=== PATIENT | female | born 1985 | race Caucasian/White ===

== ENCOUNTER 2017-02-10 13:45 | Outpatient (CLI) ==
[2016-08-01 10:31] VITALS: BMI 20.7
--- NOTE | 2017-02-10 14:26 | DI ---
EXAM: Three views left foot HISTORY: Left foot pain COMPARISON: 05/16/2015 FINDINGS: No fracture or dislocation is identified. The joint spaces are maintained. No erosive changes are identified. No gross soft tissue abnormality is seen. IMPRESSION: No acute osseous abnormality.
== END 2017-02-10 13:46 | disposition home or self-care (01) ==
LOC: RAD 13:45
PROVIDERS: ATTEND Emergency Medicine
DX: M79.672 Pain in left foot (principal)

== ENCOUNTER 2017-02-12 11:39 | Emergency (ER) ==
[2017-02-12 11:45] VITALS: BP 122/70; TEMP 98.7; BMI 21.9
[2017-02-12 12:13] LABS: BASOPHILS # (AUTO) 0.1 K/uL (0-0.2); BASOPHILS % (AUTO) 0.7 % (0.0-3.0); EOSINOPHILS # (AUTO) 0.2 K/ul (0.0-0.7); EOSINOPHILS % (AUTO) 1.2 % (0.0-7.0); HEMATOCRIT 40.9 % (37.0-47.0); HEMOGLOBIN 13.9 g/dl (12.0-16.0); IMMATURE GRANULOCYTE % (AUTO) 0.4 % (0.0-5.0); LYMPHOCYTES # (AUTO) 3.9 K/uL (0.60-3.4); LYMPHOCYTES % (AUTO) 25.5 (10.0-50.0); MEAN CORPUSCULAR HEMOGLOBIN 29.5 pg (27.0-31.0); MEAN CORPUSCULAR VOLUME 86.8 fl (81.0-99.0); MONOCYTES # (AUTO) 1.1 K/uL (0.4-2.0); MONOCYTES % (AUTO) 7.3 (0-10); NEUTROPHILS # (AUTO) 9.9 K/ul (2.0-6.9); NEUTROPHILS % (AUTO) 64.9; PLATELET COUNT 348 10^3/uL (140-440); RED BLOOD COUNT 4.71 10^6/ul (4.20-5.40); WHITE BLOOD COUNT 15.26 K/ul (4.6-10.2)
[2017-02-12 12:18] LABS: URINE PREGNANCY INTERNAL QC INTERNAL QC VALID
[2017-02-12 12:25] LABS: ALBUMIN 4.2 g/dL (3.4-5.0); ALBUMIN/GLOBULIN RATIO 1.56; ANION GAP 12.5; BILIRUBIN,TOTAL 1.03 mg/dL (0.00-1.20); BUN/CREATININE RATIO 8.82; CALCIUM 9.1 mg/dL (8.2-10.2); CREATININE 0.68 mg/dL (0.60-1.30); POTASSIUM 3.5 mmol/L (3.5-5.10); TOTAL PROTEIN 6.9 g/dL (6.4-8.2)
--- NOTE | 2017-02-12 12:48 | CT ---
EXAM: CT scan of the left foot without contrast HISTORY: Injury pain swelling TECHNIQUE: Imaging of the left foot was performed without contrast. Axial images and coronal and s agittal reconstructions were provided for interpretation. FINDINGS: No acute fractures are seen. There is anatomic alignment. No acute abnormalities are se en within the tarsal bones. There is mild dorsal soft tissue swelling. IMPRESSION: No acute fracture dislocation seen within the left foot.
--- NOTE | 2017-02-12 12:50 | CT ---
EXAM: CT scan of the left ankle without contrast HISTORY: Fall injury TECHNIQUE: Imaging of the left ankle was performed without contrast. Sagittal and coronal reconstr uctions and axial images were provided for interpretation. FINDINGS: The distal fibula and tibia appear intact. No acute fractures are seen within the talus and calcaneus. No acute abnormalities are seen within the tarsal bones. There is mild anterior and l ateral soft tissue swelling at the level of the ankle. There is mild dorsal and lateral soft tissue swelling at the level of the foot. IMPRESSION: No evidence of acute fracture seen within the left ankle.
--- NOTE | 2017-02-12 12:52 | ED.PDOC ---
General ED Provider: Dr. ZEINAB HAMLIN-ER Chief Complaint: Foot Pain/Injury Stated Complaint: i hurt my foot and my ankle--i reinjured my ankle and i called dr gillette and he told me to come here Time Seen by Physician: 11:45 Mode of Arrival: Walk-In Information Source: Patient Exam Limitations: No limitations Primary Care Provider: MANAS JAY Nursing and Triage Documentation Reviewed and Agree: Yes Musculoskeletal Complaint Exam - Ankle/Foot Complaint/Exam Location of Injury: Reports: Left, Ankle, Foot Mechanism of Injury: Reports: Trauma Symptoms Are: Reports: Still present Initial Severity: Mild Current Severity: Mild Location: Reports: Discrete Character: Reports: Aching Alleviating: Reports: None Aggravating: Reports: Movement, Weight bearing, Prolonged standing Able to Bear Weight: No Associated Signs and Symptoms: Reports: Swelling, Bruising Gout Risk Factors: Reports: None Related Surgical History: Reports: None Lower Extremity Findings: Present: Swelling, Ecchymosis, Tenderness, Limited range of motion Achilles Tendon Abnormality: No Tenderness: Present: Lateral malleolus, Midfoot Limited Range of Motion: Present: Inversion, Eversion Differential Diagnosis: Contusion, Closed Fracture, Sprain, Strain Review of Systems - Review Of Systems Constitutional: Reports: No symptoms Eyes: Reports: No symptoms Ears, Nose, Mouth, Throat: Reports: No symptoms Respiratory: Reports: No symptoms Cardiac: Reports: No symptoms GI: Reports: No symptoms : Reports: No symptoms Musculoskeletal: Reports: Joint pain, Joint swelling, Muscle pain Skin: Reports: No symptoms Neurological: Reports: No symptoms Endocrine: Reports: No symptoms Hematologic/Lymphatic: Reports: No symptoms All Other Systems: Reviewed and Negative Past Medical History - Past Medical History Previously Healthy: Yes Endocrine: Reports: None Cardiovascular: Reports: None Respiratory: Reports: Other (SINUSITIS) Hematological: Reports: None Gastrointestinal: Reports: PUD, GI Bleed, Other (CHRONIC DIARRHEA FOR 6 YEARS[ End ] IBS) Genitourinary: Reports: None Neuro/Psych: Reports: Seizure, Anxiety Musculoskeletal: Reports: None Cancer: Reports: None Last Menstrual Period: "states not " Other Pertinent Past Medical History: bee sting cellulitis - Surgical History General Surgical History: Reports: None - Family History Family History: Reports: None - Social History Smoking Status: Current every day smoker, Light tobacco smoker Hx Substance Use: No Alcohol Screening: Occasionally Lives: With family Physical Exam - Physical Exam Appearance: Well-appearing, No pain distress, Well-nourished Eyes: ANGEL, EOMI, Conjunctiva clear ENT: Ears normal, Nose normal, Oropharynx normal Neck: Supple Respiratory: Airway patent, Breath sounds clear, Breath sounds equal, Respirations nonlabored Cardiovascular: RRR, Pulses normal, No rub, No murmur GI/: Soft, Nontender, No masses, Bowel sounds normal, No Organomegaly Musculoskeletal: Limited ROM (bruising over the left ankle and foot), Edema ( foot) Skin: Warm, Dry, Normal color Neurological: Sensation intact, Motor intact, Reflexes intact, Cranial nerves intact, Alert, Oriented Psychiatric: Affect appropriate, Mood appropriate Interpretation - Radiology Interpretation Radiology Interpretation By: Radiologist Radiology Results: Negative Exam Interpreted: CT Scan Critical Care Note - Critical Care Note Total Time (mins): 0 Course - Course Hematology/Chemistry: 02/12/17 11:55 02/12/17 11:55 Orders, Labs, Meds: Lab Review 02/12/17 02/12/17 11:50 11:55 WBC 15.26 H RBC 4.71 Hgb 13.9 Hct 40.9 MCV 86.8 MCH 29.5 MCHC 34.0 RDW Coeff of Johnson 14.3 Plt Count 348 Immature Gran % (Auto) 0.4 Neut % (Auto) 64.9 Lymph % (Auto) 25.5 [place] % (Auto) 7.3 Eos % (Auto) 1.2 Baso % (Auto) 0.7 Immature Gran # (Auto) 0.1 Neut # 9.9 H Lymph # 3.9 H [place] # 1.1 Eos # 0.2 Baso # 0.1 PT 11.0 INR 1.07 Sodium 139 Potassium 3.5 Chloride 106 Carbon Dioxide 24 Anion Gap 12.5 BUN 6 L Creatinine 0.68 Estimated GFR (MDRD) 101.00 BUN/Creatinine Ratio 8.82 Glucose 104 Calcium 9.1 Total Bilirubin 1.03 AST 12 L ALT 11 L Alkaline Phosphatase 45 Total Protein 6.9 Albumin 4.2 Globulin 2.7 Albumin/Globulin Ratio 1.56 Urine Test Negative Orders Category Date Time Status CRUTCHES [ED CRUTCHES] .ONCE EMERGENCY 02/12/17 12:54 Active ED [place] .ONCE EMERGENCY 02/12/17 12:54 Active ED SPLINT APPLICATION .ONCE EMERGENCY 02/12/17 12:54 Active CBC W/ AUTO DIFF Stat LAB 02/12/17 11:55 Completed COMPREHENSIVE METABOLIC PANEL Stat LAB 02/12/17 11:55 Completed TEST URINE [URINE ] Stat LAB 02/12/17 11:50 Completed PT WITH INR Stat LAB 02/12/17 11:[address] ANKLE LEFT WITHOUT CONTRAST Stat RADS 02/12/17 11:[address] FOOT LEFT WITHOUT CONTRAST Stat RADS 02/12/17 11:53 Completed Vital Signs: Temp Pulse Resp BP Pulse Ox 02/12/17 11:40 98.7 F 103 H 16 122/70 98 Departure - Departure Time of Disposition: 12:52 Disposition: HOME SELF-CARE Discharge Problem: Ankle sprain Qualifiers: Encounter type: subsequent encounter Involved ligament of ankle: unspecified ligament Laterality: left Qualifier Code: (S93.402D) Sprain of unspecified ligament of left ankle, subsequent encounter Leukocytosis Qualifiers: Leukocytosis type: unspecified Qualifier Code: (D72.829) Elevated white blood cell count, unspecified Instructions: Ankle Sprain (ED), Ankle Stirrup Splint (ED) Condition: Good Pt referred to PMD for follow-up: Yes Additional Instructions: stay in splint and crutches=---f/u with dr gillette concerning white blood cell count-- neurontin 100mg tid prn #21 for pain Allergies/Adverse Reactions: Allergies No Known Allergies Allergy (Verified 02/12/17 11:44) Home Medications: Ambulatory Orders Prednisone 5 mg PO DAILYWM 02/12/17 Disposition Discussed With: Patient
== END 2017-02-12 13:07 | disposition home or self-care (01) ==
LOC: ED 11:39
DX: S93.402D Sprain of unspecified ligament of left ankle, subsequent encounter (principal); D72.829 Elevated white blood cell count, unspecified; F17.210 Nicotine dependence, cigarettes, uncomplicated
CPT/HCPCS: 36415; 80053; 81025; 85025; 85610; 99283

== ENCOUNTER 2017-02-12 19:34 | Emergency (ER) ==
[2017-02-12 19:35] VITALS: BMI 21.9
[2017-02-12 19:46] VITALS: BP 113/53; TEMP 98.6
[2017-02-12] MEDS ORDERED: TORADOL IM STA (20:00)
--- NOTE | 2017-02-12 20:03 | ED.PDOC ---
General ED Provider: Dr. ORTIZ DURAN Chief Complaint: Foot Pain/Injury Stated Complaint: Patient was here in the morning for the same reason, was given neurontin and tramadol, but patient could not tolerate them. ct ankle showed some swelling no fracture. Time Seen by Physician: 20:00 Mode of Arrival: Walk-In Information Source: Patient Primary Care Provider: MANAS JAY Nursing and Triage Documentation Reviewed and Agree: Yes Musculoskeletal Complaint Exam - Ankle/Foot Complaint/Exam Location of Injury: Reports: Left, Ankle, Foot Mechanism of Injury: Reports: Trauma Symptoms Are: Reports: Still present Onset of Pain: Reports: Immediate Initial Severity: Moderate Current Severity: Severe Location: Reports: Discrete Character: Reports: Aching, Throbbing Alleviating: Reports: None Aggravating: Reports: Movement, Weight bearing Able to Bear Weight: No Associated Signs and Symptoms: Reports: Swelling, Redness, Bruising. Denies: Fever, Weakness, Numbness, Tingling Gout Risk Factors: Reports: None Related Surgical History: Reports: None Lower Extremity Findings: Present: Swelling, Ecchymosis Tenderness: Present: Medial malleolus, Lateral malleolus, Midfoot Limited Range of Motion: Present: Inversion, Eversion Differential Diagnosis: Sprain, Strain Review of Systems - Review Of Systems Constitutional: Reports: No symptoms Eyes: Reports: No symptoms Ears, Nose, Mouth, Throat: Reports: No symptoms Respiratory: Reports: No symptoms Cardiac: Reports: No symptoms GI: Reports: No symptoms : Reports: No symptoms Musculoskeletal: Reports: Joint pain, Joint swelling Skin: Reports: No symptoms Neurological: Reports: No symptoms Endocrine: Reports: No symptoms Hematologic/Lymphatic: Reports: No symptoms All Other Systems: Reviewed and Negative Past Medical History - Past Medical History Previously Healthy: Yes Endocrine: Reports: None Cardiovascular: Reports: None Respiratory: Reports: Other (SINUSITIS) Hematological: Reports: None Gastrointestinal: Reports: PUD, GI Bleed, Other (CHRONIC DIARRHEA FOR 6 YEARS[ End ] IBS) Genitourinary: Reports: None Neuro/Psych: Reports: Seizure, Anxiety Musculoskeletal: Reports: None Cancer: Reports: None Last Menstrual Period: unsure - had preg. test here earlier Other Pertinent Past Medical History: bee sting cellulitis - Surgical History General Surgical History: Reports: None - Family History Family History: Reports: None - Social History Smoking Status: Current every day smoker, Light tobacco smoker Smoking Cessation Counseling Time: > 10 min Hx Substance Use: No Alcohol Screening: Occasionally - Immunizations Tetanus Shot up to Date: Yes Physical Exam - Physical Exam Appearance: Well-appearing, No pain distress, Well-nourished Pain Distress: Moderate Eyes: ANGEL, EOMI, Conjunctiva clear ENT: Ears normal, Nose normal, Oropharynx normal Respiratory: Airway patent, Breath sounds clear, Breath sounds equal, Respirations nonlabored Cardiovascular: RRR, Pulses normal, No rub, No murmur GI/: Soft, Nontender, No masses, Bowel sounds normal, No Organomegaly Musculoskeletal: No edema, No calf tenderness, Limited ROM, Limited strength Skin: Warm, Dry, Normal color Neurological: Sensation intact, Motor intact, Reflexes intact, Cranial nerves intact, Alert, Oriented Psychiatric: Affect appropriate, Mood appropriate Critical Care Note - Critical Care Note Total Time (mins): 0 Course - Course Orders, Labs, Meds: Orders Category Date Time Status Ketorolac Tromethamine [Toradol] MEDS 02/12/17 20:00 Stat 60 mg IM ONCE STA Vital Signs: Temp Pulse Resp BP Pulse Ox 02/12/17 19:35 98.6 F 86 20 113/53 L 98 Departure - Departure Time of Disposition: 20:06 Disposition: HOME SELF-CARE Discharge Problem: Ankle sprain Qualifiers: Encounter type: subsequent encounter Involved ligament of ankle: unspecified ligament Laterality: left Qualifier Code: (S93.402D) Sprain of unspecified ligament of left ankle, subsequent encounter Instructions: Ankle Stirrup Splint (ED), Ankle Sprain (ED) Condition: Stable Pt referred to PMD for follow-up: Yes Additional Instructions: rest cold or hot pack. patient told me that she did not fill her tramadol today. as she gets sick from them. Prescriptions: Hydrocodone Bit/Acetaminophen [[place] 7.5-325] 1 each PO Q8H #10 tablet Allergies/Adverse Reactions: Allergies tramadol Adverse Reaction (Verified 02/12/17 19:48) Vomiting Home Medications: Ambulatory Orders Gabapentin [Neurontin] 100 mg PO TID PRN 02/12/17 Hydrocodone Bit/Acetaminophen [[place] 7.5-325] 1 each PO Q8H #10 tablet 02/12/17 Prednisone 5 mg PO DAILYWM 02/12/17 Disposition Discussed With: Patient
== END 2017-02-12 20:25 | disposition home or self-care (01) ==
LOC: ED 19:34
DX: S93.402D Sprain of unspecified ligament of left ankle, subsequent encounter (principal); F17.210 Nicotine dependence, cigarettes, uncomplicated; D72.829 Elevated white blood cell count, unspecified
CPT/HCPCS: 36415; 80053; 81025; 85025; 85610; 96372; 99282; 99283

== ENCOUNTER 2017-07-01 09:51 | Emergency (ER) ==
[2017-07-01 09:51] VITALS: BMI 21.9
[2017-07-01 09:55] VITALS: BP 116/79; TEMP 97.6
--- NOTE | 2017-07-01 10:02 | ED.PDOC ---
General ED Provider: Dr. MELANY ENCINAS Chief Complaint: Nausea/Vomiting Stated Complaint: Patient is a 32 year old female who has a history of IBS woke up yesterday with headache and diffuse vague abdominal pain with vomiting and Diarrhea. States she feels better but was encouraged by family to come to the ER Time Seen by Physician: 10:02 Mode of Arrival: Walk-In Information Source: Patient Exam Limitations: No limitations Primary Care Provider[facility] Nursing and Triage Documentation Reviewed and Agree: Yes Review of Systems - Review Of Systems Constitutional: Reports: No symptoms Eyes: Reports: No symptoms Ears, Nose, Mouth, Throat: Reports: No symptoms Respiratory: Reports: No symptoms Cardiac: Reports: No symptoms GI: Reports: Abdominal pain, Diarrhea, Nausea, Vomiting : Reports: No symptoms Musculoskeletal: Reports: No symptoms Skin: Reports: No symptoms Neurological: Reports: No symptoms Endocrine: Reports: No symptoms Hematologic/Lymphatic: Reports: No symptoms All Other Systems: Reviewed and Negative Past Medical History - Past Medical History Previously Healthy: Yes Endocrine: Reports: None Cardiovascular: Reports: None Respiratory: Reports: Other (SINUSITIS) Hematological: Reports: None Gastrointestinal: Reports: PUD, GI Bleed, Other (CHRONIC DIARRHEA FOR 6 YEARS[ End ] IBS) Genitourinary: Reports: None Neuro/Psych: Reports: Seizure, Anxiety Musculoskeletal: Reports: None Cancer: Reports: None Last Menstrual Period: NOW Other Pertinent Past Medical History: bee sting cellulitis - Surgical History General Surgical History: Reports: None - Family History Family History: Reports: None - Social History Smoking Status: Current every day smoker, Light tobacco smoker Hx Substance Use: No Alcohol Screening: Occasionally Physical Exam - Physical Exam Appearance: Ill-appearing Re-Evaluation - Re-Evaluation Time of Re-Evaluation: 11:40 Status: Improved Vital Signs Stable: Yes Critical Care Note - Critical Care Note Total Time (mins): 0 Course - Course Hematology/Chemistry: 07/01/17 10:17 07/01/17 10:17 Orders, Labs, Meds: Lab Review 07/01/17 07/01/17 07/01/17 10: 10:17 10:17 WBC 13.87 H RBC 4.98 Hgb 15.0 Hct 44.3 MCV 89.0 MCH 30.1 MCHC 33.9 RDW Coeff of [place] 12.3 Plt Count 328 Immature Gran % (Auto) 0.3 Neut % (Auto) 73.6 Lymph % (Auto) 16.7 [place] % (Auto) 6.0 Eos % (Auto) 2.8 Baso % (Auto) 0.6 Immature Gran # (Auto) 0.0 Neut # 10.2 H Lymph # 2.3 [place] # 0.8 Eos # 0.4 Baso # 0.1 Sodium 138 Potassium 3.9 Chloride 104 Carbon Dioxide 26 Anion Gap 11.9 BUN 9 Creatinine 0.70 Estimated GFR (MDRD) 98.00 BUN/Creatinine Ratio 12.85 Glucose 98 Calcium 9.6 Total Bilirubin 0.70 AST 15 ALT 14 Alkaline Phosphatase 49 Total Protein 7.2 Albumin 4.2 Globulin 3.0 Albumin/Globulin Ratio 1.40 Serum , Qual Negative Urine Color Urine Clarity Urine pH Ur Specific [place] Urine Protein Urine Glucose (UA) Urine Ketones Urine Blood Urine Nitrite Urine Bilirubin Urine Urobilinogen Ur Leukocyte Esterase Urine Microscopic RBC Urine Microscopic WBC Ur Squamous Epith Cells Urine Bacteria Hyaline Casts Urine Mucus 07/01/17 11:15 WBC RBC Hgb Hct MCV MCH MCHC RDW Coeff of Johnson Plt Count Immature Gran % (Auto) Neut % (Auto) Lymph % (Auto) [place] % (Auto) Eos % (Auto) Baso % (Auto) Immature Gran # (Auto) Neut # Lymph # [place] # Eos # Baso # Sodium Potassium Chloride Carbon Dioxide Anion Gap BUN Creatinine Estimated GFR (MDRD) BUN/Creatinine Ratio Glucose Calcium Total Bilirubin AST ALT Alkaline Phosphatase Total Protein Albumin Globulin Albumin/Globulin Ratio Serum , Qual Urine Color Yellow Urine Clarity Clear Urine pH 6.5 Ur Specific [place] 1.010 Urine Protein Negative Urine Glucose (UA) Negative Urine Ketones Negative Urine Blood Trace-lysed Urine Nitrite Negative Urine Bilirubin Negative Urine Urobilinogen 0.2 Ur Leukocyte Esterase Negative Urine Microscopic RBC 2-5 Urine Microscopic WBC 0-2 Ur Squamous Epith Cells 2-5 Urine Bacteria Trace Hyaline Casts 0-2 Urine Mucus Trace Orders Category Date Time Status ED IV/MEDIPORT/POWERPORT .ONCE EMERGENCY 07/01/17 10:09 Active CBC W/ AUTO DIFF Stat LAB 07/01/17 10:17 Completed COMPREHENSIVE METABOLIC PANEL Stat LAB 07/01/17 10:17 Completed HCG QUALITATIVE [SERUM ] Stat LAB 07/01/17 10:17 Completed URINALYSIS C & S IF INDICATED Stat LAB 07/01/17 11:15 Completed 0.9 % Sodium Chloride [Saline Flush] MEDS 07/01/17 10:10 Discontinued 1 syr IVF PRN PRN Dicyclomine Inj [Bentyl] MEDS 07/01/17 10:10 Discontinued 20 mg IM ONCE STA Ondansetron HCl/Pf [Zofran 4 mg/2 ml] MEDS 07/01/17 10:09 Discontinued 4 mg IVP ONCE STA Sodium Chloride 0.9% [Sodium Chloride] 1,000 ml MEDS 07/01/17 10:09 Discontinued IV BOLUS Medications Discontinued Medications Generic Name Dose Route Start Last Admin Trade Name Freq PRN Reason Stop Dose Admin Dicyclomine HCl 20 mg 07/01/17 10:10 07/01/17 10:29 Bentyl IM 07/01/17 10:11 20 mg ONCE STA Administration Sodium Chloride 1,000 mls @ 1,000 mls/hr 07/01/17 10:09 07/01/17 10:29 Sodium Chloride IV 07/01/17 11:08 1,000 mls/hr BOLUS STA Administration Ondansetron HCl 4 mg 07/01/17 10:09 07/01/17 10:27 Zofran 4 Mg/2 Ml IVP 07/01/17 10:10 4 mg ONCE STA Administration Sodium Chloride 1 syr 07/01/17 10:10 07/01/17 10:29 Saline Flush IVF 1 syr PRN PRN Administration To flush IV Vital Signs: Temp Pulse Resp BP Pulse Ox 07/01/17 09:51 97.6 F 80 16 116/79 96 Departure - Departure Time of Disposition: 11:40 Disposition: HOME SELF-CARE Discharge Problem: Gastroenteritis IBS (irritable bowel syndrome) Qualifiers: Irritable bowel syndrome type: with diarrhea Qualified Code(s): K58.0 - Irritable bowel syndrome with diarrhea Instructions: Gastroenteritis (ED), Viral Syndrome (ED) Condition: Good Pt referred to PMD for follow-up: Yes Additional Instructions: Push fluids Follow up with PCP in 3 days. Prescriptions: Diphenoxylate HCl/Atropine [Lomotil 2.5-0.025 mg Tablet] 1 each PO TID PRN #10 tablet PRN Reason: Diarrhea Ondansetron HCl [Zofran Tab] 4 mg PO Q8H PRN #14 tablet PRN Reason: Nausea / Vomiting Allergies/Adverse Reactions: Allergies tramadol Adverse Reaction (Verified 07/01/17 09:55) Vomiting Home Medications: Ambulatory Orders Dicyclomine HCl [Bentyl] 10 mg PO BID 03/27/17 Diphenoxylate HCl/Atropine [Lomotil 2.5-0.025 mg Tablet] 1 each PO TID PRN #10 tablet 07/01/17 Ondansetron HCl [Zofran Tab] 4 mg PO Q8H PRN #14 tablet 07/01/17
[2017-07-01] MEDS ORDERED: ZOFRAN 4 MG/2 ML IVP STA (10:09)
[2017-07-01] MEDS ORDERED: SODIUM CHLORIDE 1,000 ML IV STA (10:09)
[2017-07-01] MEDS ORDERED: BENTYL IM STA (10:10)
[2017-07-01 10:23] LABS: BASOPHILS # (AUTO) 0.1 K/uL (0-0.2); BASOPHILS % (AUTO) 0.6 % (0.0-3.0); EOSINOPHILS # (AUTO) 0.4 K/ul (0.0-0.7); EOSINOPHILS % (AUTO) 2.8 % (0.0-7.0); HEMATOCRIT 44.3 % (37.0-47.0); IMMATURE GRANULOCYTE % (AUTO) 0.3 % (0.0-5.0); LYMPHOCYTES # (AUTO) 2.3 K/uL (0.60-3.4); LYMPHOCYTES % (AUTO) 16.7 (10.0-50.0); MEAN CORPUSCULAR HEMOGLOBIN 30.1 pg (27.0-31.0); MEAN CORPUSCULAR HGB CONC 33.9 (31.8-35.4); MONOCYTES # (AUTO) 0.8 K/uL (0.4-2.0); NEUTROPHILS # (AUTO) 10.2 K/ul (2.0-6.9); NEUTROPHILS % (AUTO) 73.6; PLATELET COUNT 328 10^3/uL (140-440); RED BLOOD COUNT 4.98 10^6/ul (4.20-5.40); WHITE BLOOD COUNT 13.87 K/ul (4.6-10.2)
[2017-07-01 10:39] LABS: SERUM PREGNANCY INTERNAL QC INTERNAL QC VALID
[2017-07-01 10:42] LABS: ALBUMIN 4.2 g/dL (3.4-5.0); ALBUMIN/GLOBULIN RATIO 1.4; ANION GAP 11.9; BILIRUBIN,TOTAL 0.7 mg/dL (0.00-1.20); BUN/CREATININE RATIO 12.85; CALCIUM 9.6 mg/dL (8.2-10.2); CREATININE 0.7 mg/dL (0.60-1.30); POTASSIUM 3.9 mmol/L (3.5-5.10); TOTAL PROTEIN 7.2 g/dL (6.4-8.2)
[2017-07-01 11:31] LABS: BILIRUBIN,URINE Negative (NEGATIVE); KETONES,URINE Negative (NEGATIVE); LEUKOCYTE ESTERASE ,URINE Negative (NEGATIVE); NITRITE,URINE Negative (NEGATIVE); PH,URINE 6.5 (5-9); PROTEIN,URINE Negative (NEGATIVE); URINE, BLOOD Trace-lysed (NEGATIVE)
[2017-07-01 11:33] LABS: ADD URINE MICROSCOPIC YES
[2017-07-01 11:35] LABS: BACTERIA,URINE TRACE (NOT PRESENT)
== END 2017-07-01 11:46 | disposition home or self-care (01) ==
LOC: ED 09:51
DX: K52.9 Noninfective gastroenteritis and colitis, unspecified (principal); K58.0 Irritable bowel syndrome with diarrhea; F17.210 Nicotine dependence, cigarettes, uncomplicated
CPT/HCPCS: 36415; 80053; 81001; 84703; 85025; 96361; 96372; 96374; 99283

== ENCOUNTER 2017-08-30 12:57 | Outpatient (CLI) ==
[2017-08-30 13:04] LABS: FLU INTERNAL QC INTERNAL QC VALID
[2017-08-30 13:05] LABS: RAPID FLU A NEGATIVE (NEGATIVE); RAPID FLU B NEGATIVE (NEGATIVE)
== END 2017-08-30 12:58 | disposition home or self-care (01) ==
LOC: LAB 12:57
PROVIDERS: ATTEND Emergency Medicine
DX: J06.9 Acute upper respiratory infection, unspecified (principal)
CPT/HCPCS: 87651; 87804; 87880

== ENCOUNTER 2017-09-19 08:58 | Outpatient (CLI) ==
--- NOTE | 2017-09-19 09:53 | DI ---
EXAM: Three views of the right elbow. History: Right elbow pain. Findings: Joint effusion is present. There is a lucency seen through the coronoid process of the ul na. No dislocation. Impression: 1. Suspect minimally-displaced coronoid process fracture of the ulna. 2. Elbow joint effusion
--- NOTE | 2017-09-19 09:54 | DI ---
EXAM: Three views of the thoracic spine. History: Thoracic back pain. Findings / impression: No acute fracture or subluxation. Dextroscoliosis with Cannon angle of 14 degr ees centered between T5 and L1. Disc space heights are preserved.
--- NOTE | 2017-09-19 09:58 | DI ---
EXAM: Three views of the lumbar spine. History: Lower back pain. Findings: No acute fracture or subluxation. Disc space heights are preserved. Impression: Unremarkable exam
--- NOTE | 2017-09-19 12:00 | CT ---
EXAM: CT of the right elbow without contrast History: Right elbow pain. Comparison: Right elbow radiograph 11/20/2016 Technique: Multiplanar CT images through the right elbow were obtained without the administration of IV contrast Findings: Mildly displaced fracture through the coronoid process of the ulna. No other fractures id entified. No dislocation. Joint effusion is present. Impression: 1. Mildly displaced fracture through the coronoid process of the ulna. 2. Joint effusion
== END 2017-09-19 08:59 | disposition home or self-care (01) ==
LOC: RAD 08:58
PROVIDERS: ATTEND Emergency Medicine
DX: M25.521 Pain in right elbow (principal); M54.5 Low back pain; G89.29 Other chronic pain; M54.6 Pain in thoracic spine; J06.9 Acute upper respiratory infection, unspecified

== ENCOUNTER 2018-02-19 09:49 | Observation (INO) ==
[2018-02-19 10:43] VITALS: BMI 20.7
[2018-02-19] MEDS: LIBRIUM PO SCH ×4 (11:13→21:21)
[2018-02-19] MEDS: SODIUM CHLORIDE 1,000 ML IV SCH ×2 (11:14→21:26)
[2018-02-19] MEDS: PROTONIX IV IVP SCH ×2 (11:53→20:56)
[2018-02-19] MEDS ORDERED: ATIVAN IVP STA ×2 (12:45→19:00)
[2018-02-19] MEDS ORDERED: VALIUM PO STA (22:46)
[2018-02-20] MEDS: SODIUM CHLORIDE 1,000 ML IV SCH ×2 (06:59→17:36)
[2018-02-20] MEDS: ZOFRAN 4 MG/2 ML IVP PRN ×3 (08:22→23:00)
[2018-02-20] MEDS: LIBRIUM PO SCH ×3 (08:22→20:09)
[2018-02-20] MEDS: PROTONIX IV IVP SCH ×2 (08:23→20:26)
[2018-02-20] MEDS ORDERED: GI COCKTAIL PO STA (08:37)
[2018-02-20] MEDS ORDERED: ATIVAN IVP STA (08:39)
[2018-02-20] MEDS: CARAFATE PO SCH ×4 (09:15→20:10)
[2018-02-20] MEDS ORDERED: DEMEROL 50 MG/ML VIAL IVP PRN ×2 (17:18→18:17)
[2018-02-20] MEDS ORDERED: DEMEROL 50 MG/ML VIAL ONE (17:24)
--- NOTE | 2018-02-20 18:00 | CT ---
Exam: CT abdomen pelvis without intravenous contrast. Comparison: 11/26/2015. Reason for exam: Abdominal pain. FINDINGS: Old granulomas disease is seen within the lung parenchyma without pleural effusion in the partially imaged lung bases. The liver, gallbladder, spleen, adrenal glands, and pancreas appear grossly unremarkable within limit ations of a noncontrasted study. Stones are seen in the left and right renal parenchyma measuring up to 1.9 mm. There is mild right-sided hydronephrosis and hydroureter. There is a 2.6 mm stone at the right urete rovesicular junction. No hydronephrosis or ureterolithiasis is seen in the left kidney. No focal small bowel dilatation or transition point. The appendix appears unremarkable. No suspicious appearing osteoblastic or osteolytic lesions. The bladder appears unremarkable. Air-filled complex appearing structure within the vaginal canal presumably a tampon. Impression: 1. Mild right-sided hydronephrosis and hydroureter with a 2.6 mm stone at the right ureterovesicular junction. 2. Bilateral nephrolithiasis measuring up to 1.9 mm. Report faxed at [id number] hours on 03/02.
[2018-02-20] MEDS ORDERED: VALIUM PO STA (22:16)
[2018-02-21] MEDS: SODIUM CHLORIDE 1,000 ML IV SCH ×2 (05:58→19:30)
[2018-02-21] MEDS: CARAFATE PO SCH ×4 (05:59→20:58)
[2018-02-21] MEDS: ROCEPHIN 1 GM in SODIUM CHLORIDE 50 ML IV SCH (09:28)
[2018-02-21] MEDS: LIBRIUM PO SCH ×3 (09:28→20:58)
[2018-02-21] MEDS: PROTONIX IV IVP SCH ×2 (09:28→20:58)
[2018-02-21] MEDS: BUSPAR PO SCH ×2 (13:33→20:58)
[2018-02-21] MEDS: CELEXA PO SCH (13:34)
[2018-02-21] MEDS ORDERED: VALIUM PO STA (21:35)
[2018-02-22] MEDS ORDERED: TYLENOL PO STA (00:08)
[2018-02-22] MEDS: CARAFATE PO SCH ×4 (05:45→21:04)
[2018-02-22] MEDS: ROCEPHIN 1 GM in SODIUM CHLORIDE 50 ML IV SCH (08:38)
[2018-02-22] MEDS: PROTONIX IV IVP SCH ×2 (08:38→21:04)
[2018-02-22] MEDS ORDERED: VALIUM PO STA (11:13)
[2018-02-22] MEDS: BUSPAR PO SCH ×2 (11:27→21:04)
[2018-02-22] MEDS: CELEXA PO SCH (11:27)
[2018-02-22] MEDS: LIBRIUM PO SCH (11:29)
--- NOTE | 2018-02-22 11:46 | PN ---
DATE OF SERVICE: 02/20/18 SUBJECTIVE: The patient is admitted to the hospital for acute anxiety. The patient is now complaining of severe abdominal pain, epigastric in nature with nausea and vomiting, right-sided abdominal pain. REVIEW OF SYSTEMS: CONSTITUTIONAL: No fever, no chills. HEENT: Normal. ENDOCRINE: No weight gain, no weight loss. CVS: No angina symptoms. No CHF symptoms. No palpitations. No atypical chest pain for CAD. No shortness of breath. No PND, no orthopnea. RESPIRATORY: No cough, no hemoptysis. GI: Nausea and vomiting. Severe right-sided abdominal pain. : No hematuria. No polyuria. MUSCULOSKELETAL: No joint swelling. PSYCHIATRIC: The patient is still stressed out, anxious, crying episodes. No depression. No suicidal thoughts. No homicidal thoughts. SKIN: Intact. No rash. The patient still has her gallbladder so we went ahead and did a CT of abdomen and pelvis which did show right-sided mild PHYSICAL EXAMINATION: V/S: BP 109/70, respiratory rate 16, heart rate 71, temperature 98, saturation 97. HEENT: Normocephalic, atraumatic. Mucosa dry, pallor positive. No icterus. NECK: Supple. No JVD, no carotid bruit. No lymphadenopathy. LUNGS: Decreased entry. Clear to auscultation. No rales or rhonchi. HEART: S1, S2 normal. No S3. No murmur, gallop or regurgitation. ABDOMEN: Soft, epigastric tenderness. Bowel sounds active. No rigidity. No rebound or guarding. No CVA tenderness. EXTREMITIES: No cyanosis, clubbing or pedal edema. MUSCULOSKELETAL: No joint swelling. NEUROLOGIC: Awake, alert. No focal deficit. LYMPHATIC: No lymph nodes palpable. SKIN: Intact and dry. LABS/IMAGING: White count 12.40, hemoglobin 12.8, hematocrit 35.9, platelet count 318. Sodium 141, potassium 3.6, chloride 108, bicarb 23, BUN 3, creatinine 0.53, glucose 102. Positive for blood in the urine. Ketones positive. Drug screen positive for Benzo's and cannabis. The patient still has her gallbladder so we went ahead and did a CT of abdomen and pelvis which did show right-sided mild hydronephrosis with 2 mm ureterolithiasis. Her pain must be from that. ASSESSMENT: 1. RIGHT-SIDED MILD PYELNEPHRITIS WITH URETERIC STONE 2. HEMATURIA 3. SEVERE ANXIETY 4. INTRACTABLE NAUSEA AND VOMITING PLAN: 1. The patient was given Demerol which did help, will continue p.r.n. 2. Zofran. 3. IV fluids. 4. I will follow with the patient in daily rounds. 5. The patient has been going through acute stress and anxiety issues. She has not been sleeping for almost 3 to 4 days now. I will give Valium to help with the sleep. TIME SPENT: More than 35 minutes MTDD
--- NOTE | 2018-02-22 15:37 | PN ---
DATE OF SERVICE: 02/21/18 SUBJECTIVE: The patient was admitted with severe anxiety. The patient's epigastric pain is somewhat better, says that she was able to sleep 2-3 hours, not more. Demerol is helping for the pain. Having crying episodes. Going through some family stress. REVIEW OF SYSTEMS: CONSTITUTIONAL: No fever, no chills. HEENT: Normal. ENDOCRINE: No weight gain, no weight loss. CVS: No angina symptoms. No CHF symptoms. No palpitations. No atypical chest pain for CAD. No shortness of breath. No PND, no orthopnea. RESPIRATORY: No cough, no hemoptysis. GI: No nausea, no vomiting. No abdominal pain. : No hematuria. No polyuria. MUSCULOSKELETAL: No joint swelling. PSYCHIATRIC: Not anxious. No depression. No suicidal thoughts. No homicidal thoughts. SKIN: Intact. No rash. PHYSICAL EXAMINATION: V/S: Blood pressure 96/61, respiratory rate 16, heart rate 74, temperature 98.2 with saturation 98. HEENT: Normocephalic, atraumatic. Mucosa dry. NECK: Supple. No JVD, no carotid bruit. No lymphadenopathy. LUNGS: Decreased and clear to auscultation. No rales or rhonchi. HEART: S1, S2 normal. No S3. No murmur, gallop or regurgitation. ABDOMEN: Soft, nontender. Bowel sounds active. No rigidity. No rebound or guarding. No CVA tenderness. Epigastric pain and left flank tenderness. EXTREMITIES: No cyanosis, clubbing or pedal edema. MUSCULOSKELETAL: No joint swelling. NEUROLOGIC: Awake, alert, oriented times three. No focal deficit. LYMPHATIC: No lymph nodes palpable. SKIN: Intact. LABS: Sodium 141, potassium 3.6, chloride 108, bicarb 23, BUN 3, creatinine 0.58, glucose 102, WBC 12.04, hgb 12.2, hct 35.9 and plt count 318. ASSESSMENT: 1. Acute anxiety 2. Nausea 3. Vomiting 4. Hydronephrosis with 2mm stone 5. Anxiety 6. Depression PLAN: 1. Start the Buspar 2. Start the Celexa 3. Continue Demerol 4. IV fluids 5. Out of bed to chair activity as tolerated. TIME SPENT: More than 35 minutes MTDD
[2018-02-22] MEDS: FLOMAX PO SCH (18:17)
[2018-02-22] MEDS: SODIUM CHLORIDE 1,000 ML IV SCH ×2 (19:25→19:34)
[2018-02-22] MEDS ORDERED: VALIUM PO SCH (21:00)
[2018-02-22] MEDS: TYLENOL PO PRN (21:04)
[2018-02-23] MEDS: SODIUM CHLORIDE 1,000 ML IV SCH (05:22)
[2018-02-23] MEDS: CARAFATE PO SCH ×2 (05:32→11:21)
[2018-02-23] MEDS: TYLENOL PO PRN (05:34)
[2018-02-23 05:59] VITALS: BP 96/51; TEMP 97.9
[2018-02-23] MEDS ORDERED: K-DUR PO STA (08:24)
[2018-02-23] MEDS: PROTONIX IV IVP SCH (08:49)
[2018-02-23] MEDS: FLOMAX PO SCH (08:50)
[2018-02-23] MEDS: BUSPAR PO SCH (08:50)
[2018-02-23] MEDS: CELEXA PO SCH (08:50)
[2018-02-23] MEDS: ROCEPHIN 1 GM in SODIUM CHLORIDE 50 ML IV SCH (08:50)
--- NOTE | 2018-02-23 13:52 | DI ---
EXAM: KUB HISTORY: Pain with urination FINDINGS: Bowel gas pattern normal. No excessive retained fecal material. No organomegaly is sugg ested. There are no suspicious calcifications. Bony structures are within normal limits for age. IMPRESSION:
--- NOTE | 2018-03-02 13:57 | DS ---
DATE OF SERVICE: 02/23/18 FINAL DIAGNOSIS: 1. DEHYDRATION 2. NAUSEA AND VOMITING 3. GENERALIZED ANXIETY DISORDER 4. BILATERAL NEPHROLITHIASIS 5. RIGHT MILD HYDRONEPHROSIS AND HYDROURETER 6. SMOKER 7. BIPOLAR WITH PANIC EPISODES 8. TONSILLECTOMY 9. LEFT WRIST FRACTURE WITH PINNING DISCHARGE INSTRUCTIONS: Followup appointment is scheduled for , 03/01/18 at 11:30. [address]. Hanson in the clinic at [phone] if you need to reschedule. MEDICATIONS AT DISCHARGE: No home medications NEW PRESCRIPTIONS: Celexa 20 mg p.o. daily Buspirone 10 mg p.o. b.i.d. Flomax 0.4 mg p.o. daily DIET INSTRUCTIONS: Increase hydration ACTIVITY: As patient tolerates SMOKING: Current smoker DISEASE SPECIFIC EDUCATION: Renal stones needing rehydration, improved hydration discussed, verbalized understanding. HOSPITAL COURSE: This is a 33-year-old female admitted from the office for acute onset of anxiety , insomnia, not able to sleep for almost three days. The patient was admitted from the office directly. Initial blood work was normal. The patient was having a lot of anxiety, nausea and vomiting because of the dehydration, unable to keep anything down. IV fluids were started. She was given Zofran. The patient started feeling a little tense. She was given Librium and Celexa. The second day , the patient had severe abdominal pain for which CT of abdomen and pelvis, CBC and CMP were done. The CT showed right-sided hydronephrosis with hydroureter and 2.6 mm stone. Demerol was given, Zofran was given. Gradually. pain was better. Flomax was given. She was constantly having episodes where the patient gets very johnson, maniac and then after some time, calms down and comes to reality. Discussed the possibility of bipolar disorder, medications and help with Mental Health. The patient was reluctant initially but the patient's mother was present during the care and the whole entirety of the hospital stay, very helpful. She was helping the patient to understand the complications of her medical conditions and may need further medications for bipolar disorder. Finally agreed to take the medications. The patient was discharged with the patient's mother. The patient's mother is aware of the patient's high risk and she is going to take the patient with her and care for the patient. I will be seeing the patient within one week in the [facility]. The patient will be followed up at the same time with Mental Health. TIME SPENT: More than 45 minutes. JEAN-PIERRE
--- NOTE | 2018-03-02 14:42 | PN ---
DATE OF SERVICE: 02/22/18 SUBJECTIVE: The patient is admitted from the office for severe anxiety/depression, not able to sleep, found to have a right-sided hydronephrosis and ureteric stone. The patient has been given Demerol for the pain. No nausea or vomiting now. Still having a lot of anxiety issues. The patient is still having mood swings with serafin to hypomania, depression, crying episodes. The patient has been started on Celexa and Buspar, refused to take the medication and complaining that she was not able to sleep when she wanted to sleep. REVIEW OF SYSTEMS: CONSTITUTIONAL: No fever, no chills. HEENT: Normal. ENDOCRINE: No weight gain, no weight loss. CVS: No angina symptoms. No CHF symptoms. No palpitations. No atypical chest pain for CAD. No shortness of breath. No PND, no orthopnea. RESPIRATORY: No cough, no hemoptysis. GI: No nausea, no vomiting. No abdominal pain. : No hematuria. No polyuria. MUSCULOSKELETAL: No joint swelling. PSYCHIATRIC: Anxious. Depression with crying episodes. Mood swings with serafin to hypomania. No suicidal thoughts. No homicidal thoughts. SKIN: Intact. No rash. PHYSICAL EXAMINATION: V/S: BP 110/63, respiratory rate 20, heart rate 71, temperature 98.1, respiratory rate 20. HEENT: Normocephalic, atraumatic. NECK: Supple. No JVD, no carotid bruit. No lymphadenopathy. LUNGS: Clear to auscultation. No rales or rhonchi. HEART: S1, S2 normal. No S3. No murmur, gallop or regurgitation. ABDOMEN: Soft, nontender. Bowel sounds active. No rigidity. No rebound or guarding. No CVA tenderness. EXTREMITIES: No cyanosis, clubbing or pedal edema. MUSCULOSKELETAL: No joint swelling. NEUROLOGIC: Awake, alert, oriented times three. No focal deficit. LYMPHATIC: No lymph nodes palpable. SKIN: Intact. LABS: White count 12.4, hemoglobin 12.2, hematocrit 35.9, platelet count 318. Sodium 141, potassium 3.6, chloride 108, bicarb 23, BUN 3, creatinine 0.58, glucose 102. ASSESSMENT: 1. RIGHT-SIDED HYDRONEPHROSIS WITH URETERIC STONE, 2.6 MM 2. POSSIBLE BIPOLAR DISORDER WITH SERAFIN AND HYPOMANIA 3. ANXIETY 4. PANIC ATTACKS 5. RECENT STRESS 6. INSOMNIA 7. HISTORY OF IBS PLAN: 1. Demerol 2. Valium 2 mg before sleeping 3. The patient and the patient's mother have been explained about signs of bipolar disorder and need for medication with lengthy and long discussion. Finally, they agreed to restart the medications. TIME SPENT: More than 35 minutes MTDD
== END 2018-02-23 13:10 | disposition home or self-care (01) ==
LOC: MEDSURG A 09:49
PROVIDERS: ADMIT Emergency Medicine; ATTEND Emergency Medicine
DX: F41.1 Generalized anxiety disorder (principal); E86.0 Dehydration; F31.9 Bipolar disorder, unspecified; F41.0 Panic disorder [episodic paroxysmal anxiety]; F32.9 Major depressive disorder, single episode, unspecified; N13.2 Hydronephrosis with renal and ureteral calculous obstruction; N13.4 Hydroureter; R11.2 Nausea with vomiting, unspecified; G47.00 Insomnia, unspecified; F12.90 Cannabis use, unspecified, uncomplicated; F13.90 Sedative, hypnotic, or anxiolytic use, unspecified, uncomplicated; F17.210 Nicotine dependence, cigarettes, uncomplicated; Z87.19 Personal history of other diseases of the digestive system
CPT/HCPCS: 36415; 80053; 80306; 81001; 81025; 82150; 83690; 85025; 87086; 97802

== ENCOUNTER 2018-04-26 11:50 | Outpatient (CLI) | END 2018-04-26 11:51 | disposition home or self-care (01) | LOC: LAB 11:50 | PROVIDERS: ATTEND Emergency Medicine | DX: Z87.898 Personal history of other specified conditions (principal) | CPT/HCPCS: 36415; 80307; 82542 ==

== ENCOUNTER 2018-06-08 01:49 | Inpatient (IN) ==
[2018-06-08] MEDS ORDERED: SODIUM CHLORIDE 1,000 ML IV STA (02:25)
[2018-06-08] MEDS ORDERED: SODIUM CHLORIDE 1,000 ML IV SCH (02:30)
--- NOTE | 2018-06-08 02:32 | ED.PDOC ---
General ED Provider: Dr. MELANY ENCINAS Chief Complaint: Overdose Stated Complaint: Patient took 55 of Seraquin 25 mg tables after she got a new job today then went out to drink and was stopped and given a Ticket for DUI. she states she took it because she was very upset. Now feels sleepy. Time Seen by Physician: 02:30 Mode of Arrival: Walk-In Information Source: Patient, Family Exam Limitations: Intoxication Primary Care Provider: [facility] Nursing and Triage Documentation Reviewed and Agree: Yes Does patient meet sepsis criteria?: No System Inflammatory Response Syndrome: Not Applicable Sepsis Protocol: For patient's 13 years and over: Temp is 96.8 and below OR 101 and greater Pulse >90 BPM Resp >20/minute Acutely Altered Mental Status Are patient's symptoms suggestive of a new infection, such as: -Pneumonia -Skin, Soft Tissue -Endocarditis -UTI -Bone, Joint Infection -Implantable Device -Acute Abdominal Infection -Wound Infection -Meningitis -Blood Stream Catheter Infection -Unknown Psychological Complaint Exam - Overdose/Toxic Exposure Complaint/Exam Patient Complains Of: Overdose Ingestion Occurred: 30 min prior to arrivae Exposure Occurred: in car Witnessed: No Ingestion: Drug (seroquil ) Character: Reports: Oral Aggravating: Reports: None Treatment Prior To Arrival: None Associated Signs And Symptoms: Reports: Intentional ingestion Related History: Reports: Similar episode, Suicidal thoughts, Suicidal plan, Suicidal gestures Completed Suicide Risk Factors: Gag Reflex Present: No Inability To Swallow Present: No Drooling Present: No Miosis Present: No Mydriasis Present: No Nystagmus Present: No Speech: Present: Dysarthric Gait: Present: Unable Patient Uncooperative For Exam: No Mood: Present: Depressed, Angry, Anxious Appearance: Present: Clean Thought Process: Present: Illogical Insight: Present: Poor Memory: Impaired Judgement: Impaired Danger To Others: No Differential Diagnoses: Acute Psychosis, Alcohol Intoxication, Anxiety, Intentional Drug OD, Suicide Attempt Quality Indicator For Non-Traumatic Chest Pain/Syncope: EKG Performed Review of Systems - Review Of Systems Constitutional: Reports: No symptoms Eyes: Reports: No symptoms Respiratory: Reports: No symptoms Cardiac: Reports: No symptoms GI: Reports: No symptoms : Reports: No symptoms Musculoskeletal: Reports: No symptoms Neurological: Reports: Anxiety, Depressed, Emotional problems All Other Systems: Reviewed and Negative Past Medical History - Past Medical History Previously Healthy: Yes Endocrine: Reports: None Cardiovascular: Reports: None Respiratory: Reports: Other (SINUSITIS) Hematological: Reports: None Gastrointestinal: Reports: PUD, GI Bleed, Other (CHRONIC DIARRHEA FOR 6 YEARS[ End ] IBS) Genitourinary: Reports: None Neuro/Psych: Reports: Seizure, Anxiety, Depression, Bipolar Disorder, Schizophrenia, Other (history of suicide) Musculoskeletal: Reports: None Cancer: Reports: None Last Menstrual Period: 4 weeks ago Other Pertinent Past Medical History: bee sting cellulitis - Surgical History General Surgical History: Reports: None - Family History Family History: Reports: None - Social History Smoking Status: Current every day smoker, Heavy tobacco smoker Hx Substance Use: No Alcohol Screening: Occasionally - Immunizations Tetanus Shot up to Date: Yes Physical Exam - Physical Exam Appearance: Ill-appearing, No pain distress, Well-nourished Ill-appearing: Mild Eyes: ANGEL (3mm reactive ), EOMI, Conjunctiva clear ENT: Nose normal, Oropharynx normal Neck: Supple Respiratory: Airway patent, Breath sounds clear, Breath sounds equal, Respirations nonlabored Cardiovascular: Tachycardia GI/: Soft, Nontender, No masses, Bowel sounds normal, No Organomegaly Musculoskeletal: Normal strength, ROM intact, No edema, No calf tenderness Skin: Warm, Dry, Normal color Neurological: Sensation intact, Motor intact, Cranial nerves intact, Alert, Oriented Psychiatric: Anxious, Depressed Interpretation - Interline Clerk Rate: Tachy Rhythm: Sinus - EKG Interpretation Time of EKG #1: 02:14 Rate: Tachy Rhythm: Sinus Ectopy: None [place]: NL ST Segment: Normal Interpretation: Sinus Tachy , QTc 452 Critical Care Note - Critical Care Note Total Time (mins): 30 Comments: Poison controlled called and did not recommend EPICAC Recommended follow up with EKG in 6 hours and to obtain iniital Magnesium levels and [place] levels Course - Course Hematology/Chemistry: 06/08/18 02:25 Orders, Labs, Meds: Lab Review 06/08/18 02:25 WBC 12.56 H RBC 4.75 Hgb 13.8 Hct 41.3 MCV 86.9 MCH 29.1 MCHC 33.4 RDW Coeff of [place] 13.2 Plt Count 352 Immature Gran % (Auto) 0.2 Neut % (Auto) 60.6 Lymph % (Auto) 29.1 [place] % (Auto) 5.0 Eos % (Auto) 4.1 Baso % (Auto) 1.0 Immature Gran # (Auto) 0.0 Neut # (Auto) 7.6 H Lymph # (Auto) 3.7 H [place] # (Auto) 0.6 Eos # (Auto) 0.5 Baso # (Auto) 0.1 Orders Category Date Time Status EKG-(ED ONLY) Stat CARDIO 06/08/18 02:24 Ordered EKG-(IP & OP ONLY) Routine CARDIO 06/08/18 07:00 Ordered ACTIVITY .BR with BRP CARE 06/08/18 02:28 Ordered Consult Mental Health [CONSULT MENTAL HEALTH] ONCE CARE 06/08/18 02:48 Ordered INTAKE & OUTPUT Q8HR CARE 06/08/18 02:26 Ordered VITAL SIGNS Q4HR CARE 06/08/18 02:28 Ordered VTE PREVENTION .YOUNG and SCD 24 Hours CARE 06/08/18 02:26 Ordered REGULAR DIET DIETARY 06/08/18 Breakfast Ordered ED UNIX SYSTEM ADMINISTRATOR APPLIED ONCE EMERGENCY 06/08/18 02:24 Ordered ED IV/MEDIPORT/POWERPORT .ONCE EMERGENCY 06/08/18 02:26 Ordered ACETAMINOPHEN Stat LAB 06/08/18 02:24 Ordered BASIC METABOLIC PANEL DAILY@0600 LAB 06/08/18 06:00 Ordered BASIC METABOLIC PANEL DAILY@0600 LAB 06/09/18 06:00 Ordered BLOOD ALCOHOL Stat LAB 06/08/18 02:24 Ordered CBC W/ AUTO DIFF DAILY@0600 LAB 06/08/18 06:00 Ordered CBC W/ AUTO DIFF DAILY@0600 LAB 06/09/18 06:00 Ordered CBC W/ AUTO DIFF Stat LAB 06/08/18 02:24 Ordered COMPREHENSIVE METABOLIC PANEL Stat LAB 06/08/18 02:24 Ordered DRUG SCREEN, URINE, RAPID Stat LAB 06/08/18 02:24 Ordered LITHIUM Stat LAB 06/08/18 02:24 Ordered MAGNESIUM Stat LAB 06/08/18 02:24 Ordered SALICYLATE Stat LAB 06/08/18 02:24 Ordered SERUM Stat LAB 06/08/18 Ordered THYROID STIMULATING HORMONE Stat LAB 06/08/18 02:24 Ordered URINALYSIS C & S IF INDICATED Stat LAB 06/08/18 02:24 Uncollected 0.9 % Sodium Chloride [Saline Flush] MEDS 06/08/18 02:25 Ordered 1 syr IVF PRN PRN SODIUM CHLORIDE 0.9% @ 1,000 MLS/HR(1,000ml) MEDS 06/08/18 02:25 Ordered Sodium Chloride 0.9% [Sodium Chloride] 1,000 ml IV BOLUS Sodium Chloride 0.9% [Sodium Chloride] 1,000 ml MEDS 06/08/18 02:30 Ordered IV 150 mls/hr RESUSCITATION STATUS Routine OTHERS 06/08/18 02:26 Ordered Medications Generic Name Dose Route Start Last Admin Trade Name Freq PRN Reason Stop Dose Admin Sodium Chloride 1,000 mls @ 1,000 mls/hr 06/08/18 02:25 Sodium Chloride IV 06/08/18 03:24 BOLUS STA Sodium Chloride 1,000 mls @ 150 mls/hr 06/08/18 02:30 Sodium Chloride IV .Q6H40M CHIKIS Sodium Chloride 1 syr 06/08/18 02:25 Saline Flush IVF PRN PRN To flush IV Vital Signs: Temp Pulse Resp BP Pulse Ox 06/08/18 01:51 98 F 130 H 24 104/71 95 Departure - Departure Time of Disposition: 03:15 Disposition: ADMITTED INPATIENT Discharge Problem: Drug overdose, Alcohol intoxication, Suicidal behavior with attempted self- injury Condition: Fair Pt referred to PMD for follow-up: No IPMP verified?: No Allergies/Adverse Reactions: Allergies tramadol Adverse Reaction (Verified 06/08/18 02:02) Vomiting Home Medications: Ambulatory Orders Ranitidine HCl [Zantac] 300 mg PO BID 06/08/18 Disposition Discussed With: Patient, Family Discharge Problem: Alcohol intoxication Qualifiers: Complication of substance-induced condition: uncomplicated Qualified Code(s): F10.920 - Alcohol use, unspecified with intoxication, uncomplicated
[2018-06-08 05:29] VITALS: BMI 25.0
[2018-06-08] MEDS ORDERED: SODIUM CHLORIDE 500 ML IV ONE (06:00)
[2018-06-08] MEDS: SODIUM CHLORIDE 1,000 ML IV SCH ×2 (07:34→14:47)
[2018-06-08] MEDS ORDERED: DEXTROSE 50%-WATER ABBOJECT IVP STA ×2 (10:41→18:19)
[2018-06-08] MEDS ORDERED: DEXTROSE 5%-NS IV SOLUTION 1,000 ML IV STA (10:41)
[2018-06-08] MEDS: DEXTROSE 5%-NS IV SOLUTION 1,000 ML IV SCH ×3 (14:52→22:46)
[2018-06-08] MEDS ORDERED: LASIX IVP STA (18:43)
[2018-06-08] MEDS ORDERED: LASIX ONE (18:49)
[2018-06-08] MEDS: PROTONIX IV IVP SCH (18:52)
[2018-06-08] MEDS: DUONEB NEB SCH (21:50)
[2018-06-09] MEDS: DEXTROSE 5%-NS IV SOLUTION 1,000 ML IV SCH ×5 (02:33→18:04)
[2018-06-09] MEDS: DUONEB NEB SCH ×2 (04:30→14:00)
[2018-06-09] MEDS: PROTONIX IV IVP SCH (08:49)
[2018-06-09] MEDS ORDERED: K-DUR PO STA (11:19)
[2018-06-09] MEDS ORDERED: LASIX IVP STA (12:50)
[2018-06-09] MEDS ORDERED: ATIVAN IVP STA ×3 (13:55→22:52)
[2018-06-09] MEDS ORDERED: ATIVAN ONE (14:23)
[2018-06-09] MEDS: NICODERM 21 MG TD SCH (14:29)
[2018-06-09] MEDS ORDERED: AMBIEN PO STA (20:25)
[2018-06-09] MEDS: BUSPAR PO SCH (20:38)
[2018-06-09] MEDS: CELEXA PO SCH (20:38)
[2018-06-09] MEDS ORDERED: LITHIUM CARBONATE 300 MG PO SCH (21:00)
[2018-06-09] MEDS: ATIVAN ONE ×2 (22:42→22:57)
--- NOTE | 2018-06-10 00:18 | DI ---
EXAM: Chest two view. HISTORY: Cough. COMPARISION: None. FINDINGS: Heart and pulmonary vascularity within normal limits. Lungs are satisfactory inflated wit h no active pulmonary infiltrate seen. Granulomatous calcifications are seen. IMPRESSION: Evidence of old granulomatous disease with no active cardiac or pulmonary process seen.
[2018-06-10] MEDS: NICODERM 21 MG TD SCH ×2 (08:14→14:14)
[2018-06-10] MEDS: LITHIUM CARBONATE PO SCH ×2 (08:15→21:45)
[2018-06-10] MEDS: CELEXA PO SCH (08:15)
[2018-06-10] MEDS: BUSPAR PO SCH ×3 (08:15→21:46)
[2018-06-10] MEDS: PROTONIX IV IVP SCH (08:15)
[2018-06-10] MEDS ORDERED: ATIVAN IVP STA ×2 (08:29→15:07)
[2018-06-10] MEDS ORDERED: ATIVAN ONE ×2 (08:47→15:04)
[2018-06-10] MEDS: DEXTROSE 5%-NS IV SOLUTION 1,000 ML IV SCH ×2 (12:22→21:48)
[2018-06-10] MEDS ORDERED: AMBIEN PO ONE (21:00)
[2018-06-11] MEDS: PROTONIX IV IVP SCH (08:45)
[2018-06-11] MEDS: CELEXA PO SCH (08:45)
[2018-06-11] MEDS: BUSPAR PO SCH ×2 (08:45→14:39)
[2018-06-11] MEDS: LITHIUM CARBONATE PO SCH (08:45)
[2018-06-11] MEDS: NICODERM 21 MG TD SCH (08:47)
[2018-06-11] MEDS ORDERED: ATIVAN IVP STA ×2 (10:25→10:41)
[2018-06-11] MEDS ORDERED: ATIVAN ONE (10:31)
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
--- NOTE | 2018-06-11 10:45 | PCM.PROG ---
Attending Provider: ATTENDING PROVIDER: Dr. [facility] DATE OF SERVICE: 06/11/18 SUBJECTIVE: This 33 year old WHITE/ F was hospitalized 06/08/18. The Patient is feeling somewhat better. She is still having some thoughts of hurting herself but no plan. The patient's father is in the room. The patient has been getting anxiety episodes in between for which Ativan has been helping. The patient is willing to get help and wants to be transferred to a psychiatric facility. REVIEW OF SYSTEMS: CONSTITUTIONAL: No fever, no chills. ENDOCRINE: No weight loss or weight gain. HEENT: No sinus drainage, no sore throat. CVS: No angina symptoms. No CHF symptoms. No palpitations. No atypical chest pain for CAD. No shortness of breath. RESPIRATORY: No cough, no hemoptysis. GI: No melena. No abdominal pain. No nausea, no vomiting. : No hematuria. No polyuria. SKIN: No rash. No wounds. MUSCULOSKELETAL: No pain. CLIENT MANAGER: No blackout, no dizziness. No headache. No double vision. PSYCHIATRIC: Anxious. Suicidal thoughts but no plan. No homicidal thoughts. PHYSICAL EXAMINATION: GENERAL: Lying in bed in no distress. VITAL SIGNS: Temperature 98.3 F, Pulse 95, Respiratory Rate 16, BP 115/74, Pulse Ox 99% HEENT: Normocephalic, atraumatic. Mucosa is dry, pallor positive. NECK: No JVP, no carotid bruit. No lymphadenopathy. CARDIAC: S1, S2, no S3. No murmur, gallop or regurgitation. LUNGS: Clear to auscultation. ABDOMEN: Soft, non-tender. Bowel sounds active. No rigidity, guarding or CVA tenderness. EXTREMITIES: Left arm swelling and tenderness at site of IV line. No clubbing , cyanosis or edema. NEUROLOGIC: Awake, alert and oriented x3. LYMPHATIC: No palpable lymph nodes SKIN: Not dry. Intact. MUSCULOSKELETAL: No joint swelling. LAB REVIEW: 06/09/18 05:05 06/10/18 08:53 ASSESSMENT: 1. Left arm swelling and tenderness at site of IV line. 2. Alcohol intoxication. 3. Suicidal attempt with Seroquel medication. 4. History of bipolar disorder/depression and anxiety. PLAN: 1. The patient is stable to be admitted to psychiatric facility 2. Ultrasound/Venous Doppler of left arm 3. The patient is agreeable at this time for admission to psychiatric facility Plan and coordination of the patient's care discussed in the presence of Hat Designer and nurse. CONDITION: Stable SCRIBED BY: Teresa FULLERist scribed while in presence of service performed by Dr. [facility] on 06/11/18 ([id number])
--- NOTE | 2018-06-11 10:54 | PN ---
DATE OF SERVICE: 06/09/18 SUBJECTIVE: The patient was admitted with alcohol intoxication and overdose of the Seroquel. The patient is more awake and alert, urinating good. Heart rate has been steady 116-120 which is better. EKG being done the QT prolongation. Repeat urine blood alcohol level was less than 10. REVIEW OF SYSTEMS: CONSTITUTIONAL: No fever, no chills. HEENT: Normal. ENDOCRINE: No weight gain, no weight loss. CVS: No angina symptoms. No CHF symptoms. No palpitations. No atypical chest pain for CAD. No shortness of breath. No PND, no orthopnea. RESPIRATORY: No cough, no hemoptysis. GI: No nausea, no vomiting. No abdominal pain. : No hematuria. No polyuria. MUSCULOSKELETAL: No joint swelling. PSYCHIATRIC: Not anxious. No depression. No suicidal thoughts. No homicidal thoughts. SKIN: Intact. No rash. PHYSICAL EXAMINATION: V/S: blood pressure 112/64, respiratory rate 22, heart rate 116, temperature 99.2 with saturation 97%. HEENT: Normocephalic, atraumatic. Mucosa dry. Puffiness on the face. NECK: Supple. No JVD, no carotid bruit. No lymphadenopathy. LUNGS: Clear to auscultation. No rales or rhonchi. HEART: S1, S2 normal. No S3. No murmur, gallop or regurgitation. ABDOMEN: Soft, nontender. Bowel sounds active. No rigidity. No rebound or guarding. No CVA tenderness. EXTREMITIES: No cyanosis, clubbing or pedal edema. MUSCULOSKELETAL: No joint swelling. NEUROLOGIC: Awake, alert. No focal deficit. LYMPHATIC: No lymph nodes palpable. SKIN: Intact. LABS: Sodium 140, potassium 3.0, chloride 111, bicarb 24, BUN 4, creatinine 0.61, glucose 113, WBC 14.91, hgb 11.5, hct 34.3, plt count 296. ASSESSMENT: 1. Alcohol intoxication 2. Suicidal ideation 3. Intentional Seroquel overdose 4. History of bipolar 5. Depression 6. Hypokalemia PLAN: 1. Continue the IV fluids 2. Will restart the home medications except Seroquel 3. Ativan tonight for sleeping 4. Mental Health followup 5. Most likely will advise the patient for inpatient treatment for the depression and anxiety, verbalized understanding The patient and family is willing to do that. TIME SPENT: More than 35 minutes MTDD
--- NOTE | 2018-06-11 10:59 | PN ---
DATE OF SERVICE: 06/10/18 SUBJECTIVE: The patient is more awake and alert and says that patient is feeling somewhat better. Anxiety is improved with the medication restarting. REVIEW OF SYSTEMS: CONSTITUTIONAL: No fever, no chills. HEENT: Normal. ENDOCRINE: No weight gain, no weight loss. CVS: No angina symptoms. No CHF symptoms. No palpitations. No atypical chest pain for CAD. No shortness of breath. No PND, no orthopnea. RESPIRATORY: No cough, no hemoptysis. GI: No nausea, no vomiting. No abdominal pain. : No hematuria. No polyuria. MUSCULOSKELETAL: No joint swelling. PSYCHIATRIC: Not anxious. No depression. No suicidal thoughts. No homicidal thoughts. SKIN: Intact. No rash. PHYSICAL EXAMINATION: V/S: blood pressure 111/71, respiratory rate 18, heart rate 116, temperature 99.1 HEENT: Normocephalic, atraumatic. Mucosa dry. Pallor positive. No icterus. NECK: Supple. No JVD, no carotid bruit. No lymphadenopathy. LUNGS: Clear to auscultation. No rales or rhonchi. HEART: S1, S2 normal. No S3. No murmur, gallop or regurgitation. ABDOMEN: Soft, nontender. Bowel sounds active. No rigidity. No rebound or guarding. No CVA tenderness. EXTREMITIES: No cyanosis, clubbing or pedal edema. MUSCULOSKELETAL: No joint swelling. NEUROLOGIC: Awake, alert. No focal deficit. LYMPHATIC: No lymph nodes palpable. SKIN: Intact. LABS: WBC 14.91, hgb 11.5, hct 34.3, plt count 296. Sodium 140, potassium 3.0, chloride 111, bicarb 24, BUN 4, creatinine 0.61 and glucose 113. ASSESSMENT: 1. Hypokalemia 2. Suicidal ideation with alcohol ingestion 3. Seroquel medication ingestion almost 50 pills 4. Bipolar disorder 5. Depression 6. Anxiety PLAN: 1. Ativan PRN for the anxiety 2. Nicotine patch 3. Out of bed to chair 4. Placement for the depression at this time. We are working and communication with Mental Health workers. TIME SPENT: More than 35 minutes MTDD
--- NOTE | 2018-06-11 11:36 | US ---
ULTRASOUND UPPER EXTREMITY VENOUS DOPPLER EXAM HISTORY: Redness and pain left antecubital. FINDDINGS: Left upper extremity venous Doppler exam. Real time herr-scale, Doppler spectral analysis and color-flow Doppler imaging performed. The veins targeted for evaluation include the jugular, hall bclavian, axillary, brachial, cephalic, basilic, radial and ulnar. The evaluated veins demonstrated normal spontaneous flow and compression without evidence of thrombosis. IMPRESSION: No venous thrombosis identified.
[2018-06-11] MEDS ORDERED: NICODERM 21 MG TD STA (16:43)
[2018-06-11 17:16] VITALS: BP 118/76; TEMP 98
[2018-06-11] MEDS: DEXTROSE 5%-NS IV SOLUTION 1,000 ML IV SCH (17:27)
--- NOTE | 2018-06-11 21:10 | PCM.HOSP ---
- Observation Care Discharge [id number] OBS Care Discharge (96603): 06/11 - Initial Observation Care [id number] High Complexity 70 Minutes (79047): 06/08 - Subsequent Observation Care [id number] 35 Minutes per Day ([id number]): 06/09. 06/10
--- NOTE | 2018-06-12 13:35 | DS ---
DATE OF SERVICE: 06/11/18 FINAL DIAGNOSIS: 1. Drug overdose, suicidal, Seroquel 2. Alcohol intoxication 3. History of seizure disorder, lately none 4. Alcohol use 5. Depression 6. Anxiety 7. IBS DISCHARGE INSTRUCTIONS: Discharge the patient to the [facility] transport to [facility] in [place] for management of the Depression. Continue the current medications. MEDICATIONS AT DISCHARGE: Librium Citalopram Buspar Seroquel is on hold Zantac twice a day DIET INSTRUCTIONS: Regular ACTIVITY: As much as tolerated DISEASE SPECIFIC EDUCATION: Alcohol use Polysubstance use and mixing with the medications been discussed Risk of lethal effect been discussed and verbalized understanding. HOSPITAL COURSE: Marlys Lawson is a 33 year old female who has been struggling with her bipolar and depression lately but with the regimen of the Emerson, Citalopram and Seroquel. The patient has been doing good. On Monday early in the morning the patient had a DUI. The recently joint the EMT course at [facility] and the patient was very happy that she is progressing in her life and she had a libertarian and she had drinks but the patient received a DUI and it was at that time the patient thought her life has ended there. She had a new bottle of the Seroquel which had more than 50 pills and she took all of them. When the family member came and got her from the custodial she told them and they brought her to the emergency room. The patient was responding to the verbal stimuli and going back to sleep, intoxicated. Blood alcohol level was more than 203. Tylenol level less than 3 and Salicylate level less than 5. WBC 12,000. At that time the patient was admitted to the hospital for the observation, IV fluids were given as per the poison control. We kept monitoring the QT prolongation and EKG's were done and giving the D5 half normal saline to control the sugars. Her heart rate went to 140' and 150's with IV fluids we will try to control the heart rate. Blood pressure been falling down 86/65 with IV fluids at 250ml per hour and blood pressure was able to creep up to more than 100. As the patient's blood pressure was more than 100 we did given a dose of Lasix and continued the IV fluids. Sugars dropped to 65. D5 and D50 were given which did bring the sugars up. Gradually the patient being more awake and alert. Blood alcohol level became less than 10. Toxicology was was positive for the Tricyclic antidepressant. Meanwhile the patient been talking about placement for the alcoholism, depression and acute crisis at this time. The patient's mother came who is very caring for the patient and very responsible and the father is also there, Irvin. They all talked to the patient and agreed with the patient being transferred to the [facility] for the treatment and evaluation and patient being transferred. TIME SPENT: MORE THAN 65 MINUTES MTDD
== END 2018-06-11 17:58 | DRG 897 ==
LOC: ED 01:49 → SCU 03:01
PROVIDERS: ADMIT Emergency Medicine; ATTEND Emergency Medicine
DX: F10.129 Alcohol abuse with intoxication, unspecified (principal); F41.8 Other specified anxiety disorders; R41.82 Altered mental status, unspecified; F31.9 Bipolar disorder, unspecified; K58.9 Irritable bowel syndrome, unspecified; E87.6 Hypokalemia
CPT/HCPCS: 36415; 80048; 80053; 80178; 80306; 80307; 81001; 82962; 83735; 84443; 84703; 85025; 87081; 93005; 93010; 94640; 96360; 96361; 99285

== ENCOUNTER 2018-06-15 18:15 | Emergency (ER) ==
[2018-06-15 18:28] VITALS: BP 113/79; TEMP 99.2; BMI 22.4
[2018-06-15] MEDS ORDERED: EPIPEN TWINPAK IM STA (18:46)
[2018-06-15] MEDS ORDERED: BENADRYL IVP STA (18:46)
[2018-06-15] MEDS ORDERED: SOLU-MEDROL 40 MG IVP STA (18:47)
[2018-06-15] MEDS ORDERED: EPINEPHRINE 1:1,000 AMP IM STA (19:14)
--- NOTE | 2018-06-15 19:23 | ED.PDOC ---
General ED Provider: Dr. ZEINAB HAMLIN-ER Chief Complaint: Allergic Reaction Stated Complaint: i took a gabapentin and my tongue started to swell Time Seen by Physician: 18:30 Mode of Arrival: Walk-In Information Source: Patient, Family Exam Limitations: No limitations Primary Care Provider: [facility] Nursing and Triage Documentation Reviewed and Agree: Yes Does patient meet sepsis criteria?: No System Inflammatory Response Syndrome: Not Applicable Sepsis Protocol: For patient's 13 years and over: Temp is 96.8 and below OR 101 and greater Pulse >90 BPM Resp >20/minute Acutely Altered Mental Status Are patient's symptoms suggestive of a new infection, such as: -Pneumonia -Skin, Soft Tissue -Endocarditis -UTI -Bone, Joint Infection -Implantable Device -Acute Abdominal Infection -Wound Infection -Meningitis -Blood Stream Catheter Infection -Unknown EENT Complaint Exam - Dental/Oral Complaint/Exam Mechanism of Injury: No known trauma Onset/Duration: 2 hrs Symptoms Are: Still present Timing: Constant Initial Severity: Mild Current Severity: Mild Location: tongue Character: Reports: Dull, Aching Aggravating: Reports: None Alleviating: Reports: None Associated Signs and Symptoms: Denies: Swelling, Discharge, Fever, Foul odor, Foul taste in mouth Cervical Lymphadenopathy Present: No Facial Swelling Present: No Bleeding Present: No Oropharynx Findings: Absent: Clots, Active bleeding Septal Hematoma: No Foreign Body Present: No Dysphagia Present: No Drooling Present: No Asymmetrical Tonsillar Swelling Present: No Uvula Midline: No Malgorzata-tonsillar Fluctuence: No Trismus Present: No Palatal Petechiae Present: No Scarlatinaform Rash Present: No Differential Diagnoses: Other Review of Systems - Review Of Systems Constitutional: Reports: No symptoms Eyes: Reports: No symptoms Ears, Nose, Mouth, Throat: Reports: Mouth swelling Respiratory: Reports: No symptoms Cardiac: Reports: No symptoms GI: Reports: No symptoms : Reports: No symptoms Musculoskeletal: Reports: No symptoms Skin: Reports: No symptoms Neurological: Reports: No symptoms Endocrine: Reports: No symptoms Hematologic/Lymphatic: Reports: No symptoms All Other Systems: Reviewed and Negative Past Medical History - Past Medical History Previously Healthy: Yes Endocrine: Reports: None Cardiovascular: Reports: None Respiratory: Reports: Other (SINUSITIS) Hematological: Reports: None Gastrointestinal: Reports: PUD, GI Bleed, Other (CHRONIC DIARRHEA FOR 6 YEARS[ End ] IBS) Genitourinary: Reports: None Neuro/Psych: Reports: Seizure, Anxiety, Depression, Bipolar Disorder, Schizophrenia, Other (history of suicide) Musculoskeletal: Reports: None Cancer: Reports: None Last Menstrual Period: 1 month Other Pertinent Past Medical History: bee sting cellulitis - Surgical History General Surgical History: Reports: None - Family History Family History: Reports: None - Social History Smoking Status: Current every day smoker, Heavy tobacco smoker Hx Substance Use: No Alcohol Screening: Occasionally Physical Exam - Physical Exam Appearance: Well-appearing, No pain distress, Well-nourished Eyes: ANGEL ENT: Ears normal, Nose normal, Oropharynx normal Neck: Supple Respiratory: Airway patent Cardiovascular: RRR GI/: Soft, Nontender, No masses, Bowel sounds normal, No Organomegaly Musculoskeletal: Normal strength, ROM intact, No edema, No calf tenderness Skin: Warm, Dry, Normal color Neurological: Sensation intact, Motor intact, Reflexes intact, Cranial nerves intact, Alert, Oriented Psychiatric: Affect appropriate, Mood appropriate, Anxious Re-Evaluation - Re-Evaluation Time of Re-Evaluation: 19:23 Status: Improved (no tongue swelling wheezing or stridor) Vital Signs Stable: Yes Pain Level: 0 Appearance: NAD Lungs: Clear Skin: Warm and Dry Neuro: Alert and Oriented X3 CV: RRR Critical Care Note - Critical Care Note Total Time (mins): 0 Course - Course Orders, Labs, Meds: Orders Category Date Time Status Diphenhydramine Inj [Benadryl] MEDS 06/15/18 18:46 Discontinued 50 mg IVP ONCE STA Epinephrine Amp [Epinephrine 1:1,000 Amp] MEDS 06/15/18 19:14 Discontinued 0.3 mg IM ONCE STA Epinephrine [Epipen Twinpak] MEDS 06/15/18 18:46 Discontinued 0.3 mg IM ONCE STA Methylprednisolone Sod Succ/Pf [Solu-Medrol 40 mg] MEDS 06/15/18 18:47 Discontinued 80 mg IVP ONCE STA Medications Discontinued Medications Generic Name Dose Route Start Last Admin Trade Name Freq PRN Reason Stop Dose Admin Diphenhydramine HCl 50 mg 06/15/18 18:46 06/15/18 19:03 Benadryl IVP 06/15/18 18:47 50 mg ONCE STA Administration Epinephrine HCl 0.3 mg 06/15/18 18:46 06/15/18 19:17 Epipen Twinpak IM 06/15/18 18:47 Not Given ONCE STA Epinephrine HCl 0.3 mg 06/15/18 19:14 06/15/18 18:45 Epinephrine 1:1,000 Amp IM 06/15/18 19:15 0.3 mg ONCE STA Administration Methylprednisolone Sodium Succinate 80 mg 06/15/18 18:47 06/15/18 19:00 Solu-Medrol 40 Mg IVP 06/15/18 18:48 80 mg ONCE STA Administration Vital Signs: Temp Pulse Resp BP Pulse Ox 06/15/18 18:17 99.2 F 80 20 113/79 97 Departure - Departure Time of Disposition: 19:23 Disposition: HOME SELF-CARE Discharge Problem: Angioedema Qualifiers: Encounter type: initial encounter Qualified Code(s): T78.3XXA - Angioneurotic edema, initial encounter Instructions: Angioedema (ED) Condition: Good Pt referred to PMD for follow-up: Yes IPMP verified?: No Additional Instructions: MEDROL DOSE PACK--USE BENADRYL Q 6HHRS(50MG)--F/U WTIH DR Burns Allergies/Adverse Reactions: Allergies gabapentin Adverse Reaction (Verified 06/15/18 18:29) tramadol Adverse Reaction (Verified 06/08/18 02:02) Vomiting Home Medications: Ambulatory Orders Ranitidine HCl [Zantac] 300 mg PO BID 06/08/18 Disposition Discussed With: Patient, Family
== END 2018-06-15 19:35 | disposition home or self-care (01) ==
LOC: ED 18:15
DX: T78.3XXA Angioneurotic edema, initial encounter (principal); T42.6X5A Adverse effect of other antiepileptic and sedative-hypnotic drugs, initial encounter; F17.210 Nicotine dependence, cigarettes, uncomplicated
CPT/HCPCS: 96372; 96374; 96375; 99283

== ENCOUNTER 2018-07-03 10:06 | Outpatient (CLI) | END 2018-07-03 10:07 | disposition home or self-care (01) | LOC: LAB 10:06 | PROVIDERS: ATTEND Nurse Practitioner Family | DX: F19.10 Other psychoactive substance abuse, uncomplicated (principal); F10.10 Alcohol abuse, uncomplicated; Z13.9 Encounter for screening, unspecified; D64.9 Anemia, unspecified | CPT/HCPCS: 36415; 80053; 80306; 80307; 81025; 85025; 86592; 86706; 86708; 87389; 87522; 87800 ==